=== PATIENT | female | born 1985 | race Two or more races ===

== ENCOUNTER 2022-07-26 14:46 | Emergency (ER) | payer MEDICAID, OTHER ==
[~2022-07-26] VITALS: Ht 167.6 cm; Wt 75.5 kg
[2022-07-26 15:25] LABS: Basophils # (auto) 0 10 ^3/uL (0-0.2); Eosinophils # (auto) 0.3 10 ^3/uL (0-0.8); Monocytes # (auto) 0.4 10 ^3/uL (0-1.3)
[2022-07-26 15:28] LABS: Basophils % (auto) 0.4 % (0.0-2.0); Eosinophils % (auto) 4.3 % (0.0-7.0); Hematocrit 39.6 % (36.0-46.0); Hemoglobin 13.2 g/dL (12.2-16.2); Lymphocytes # (auto) 3.4 10 ^3/uL (0.4-5.4); Lymphocytes % (auto) 44.2 % (10.0-50.0); Mean Corpuscular Hemoglobin 26.6 pg (28.0-32.0); Mean Corpuscular Hgb Conc. 33.5 g/dL (32.0-36.0); Mean Corpuscular Volume 79.3 fL (80.0-100.0); Monocytes % (auto) 5.8 % (0.0-12.0); Neutrophils # (auto) 3.4 10 ^3/uL (1.6-8.6); Neutrophils % (auto) 45.3 % (37.0-80.0); Nucleated Red Blood Cells % 0.2 %; Red Blood Cells 4.99 10^6/uL (4.0-5.20); Red Cell Distribution Width 15.4 % (11.8-14.3); White Blood Cell 7.6 10^3/uL (4.4-10.8)
[2022-07-26 15:49] LABS: INR 0.95 (0.9-1.15); Partial Thromboplastin Time 26.3 sec (24.6-33.4)
[2022-07-26 15:51] LABS: Calcium 9.6 mg/dL (8.5-10.1); Potassium 4.1 mmol/L (3.5-5.1)
[2022-07-26 15:54] LABS: BUN/Creatinine Ratio 16.7
[2022-07-26 15:57] LABS: Bilirubin, Total 0.3 mg/dL (0.2-1.0); Total Protein 8.5 g/dL (6.4-8.2)
[2022-07-26 16:38] LABS: Urine Bacteria FEW /hpf (None Seen); Urine Blood 1+ /uL (Negative); Urine Mucus FEW (None Seen); Urine Specific Gravity 1.015 (1.001-1.035); Urine WBC 45 /hpf (0 - 5)
[2022-07-26] MEDS ORDERED: PHEN95TA10 PO (17:49)
[2022-07-26] MEDS ORDERED: CEPH-510 PO (17:49)
[2022-07-26 18:47] VITALS: BP 131/85
== END 2022-07-26 18:48 | disposition home or self-care (01) ==
LOC: ER 14:46
DX: R00.2 Palpitations (principal); N39.0 Urinary tract infection, site not specified; Z32.02 Encounter for pregnancy test, result negative
CPT/HCPCS: 36415; 71045; 80053; 81001; 81025; 83880; 84443; 84484; 85025; 85379; 85610; 85730; 93005

== ENCOUNTER 2022-12-14 20:02 | Emergency (ER) | payer MEDICAID ==
[~2022-12-14] VITALS: Ht 167.6 cm; Wt 78.5 kg
[~2022-12-14 20:02] MED LIST: CEPH-510 PO; PHEN95TA10 PO
[2022-12-14 20:51] LABS: Urine Bacteria MANY /hpf (None Seen); Urine Blood 3+ /uL (Negative); Urine Specific Gravity 1.004 (1.001-1.035); Urine WBC 22 /hpf (0 - 5)
[2022-12-14 21:46] LABS: Eosinophils # (auto) 0.3 10 ^3/uL (0-0.8); Hemoglobin 12.5 g/dL (12.2-16.2); White Blood Cell 9.4 10^3/uL (4.4-10.8)
[2022-12-14 21:47] LABS: Basophils # (auto) 0.1 10 ^3/uL (0-0.2); Basophils % (auto) 0.7 % (0.0-2.0); Eosinophils % (auto) 3.7 % (0.0-7.0); Hematocrit 37.5 % (36.0-46.0); Lymphocytes # (auto) 3.9 10 ^3/uL (0.4-5.4); Lymphocytes % (auto) 41.3 % (10.0-50.0); Mean Corpuscular Hemoglobin 26.1 pg (28.0-32.0); Mean Corpuscular Hgb Conc. 33.2 g/dL (32.0-36.0); Mean Corpuscular Volume 78.6 fL (80.0-100.0); Monocytes # (auto) 0.5 10 ^3/uL (0-1.3); Monocytes % (auto) 5.1 % (0.0-12.0); Neutrophils # (auto) 4.6 10 ^3/uL (1.6-8.6); Neutrophils % (auto) 49.2 % (37.0-80.0); Nucleated Red Blood Cells % 0.1 %; Red Blood Cells 4.78 10^6/uL (4.0-5.20); Red Cell Distribution Width 16.5 % (11.8-14.3)
[2022-12-14 22:11] LABS: Albumin 3.6 g/dL (3.4-5.0); Calcium 8.4 mg/dL (8.5-10.1); Potassium 4.2 mmol/L (3.5-5.1)
[2022-12-14 22:14] LABS: BUN/Creatinine Ratio 11.3 (10.0-20.0); Bilirubin, Total 0.2 mg/dL (0.2-1.0); Total Protein 8.4 g/dL (6.4-8.2)
[2022-12-15] MEDS ORDERED: CEPH-510 PO (01:13)
[2022-12-15 02:10] VITALS: BP 139/56
== END 2022-12-15 02:22 | disposition home or self-care (01) ==
LOC: ER 20:04
DX: N93.9 Abnormal uterine and vaginal bleeding, unspecified (principal); N39.0 Urinary tract infection, site not specified; R10.2 Pelvic and perineal pain; Z79.899 Other long term (current) drug therapy
CPT/HCPCS: 36415; 76856; 80053; 81001; 84702; 85025; 86900; 86901